=== PATIENT | male | born 1995 | race Caucasian/White ===

== ENCOUNTER 2016-06-12 08:18 | Outpatient (CLI) | payer OTHER | END 2016-06-12 23:59 | DX: Z00.00 Encounter for general adult medical examination without abnormal findings (principal) ==

== ENCOUNTER 2016-06-19 08:46 | Outpatient (CLI) | payer OTHER | END 2016-06-19 08:47 | disposition home or self-care (01) | DX: R79.89 Other specified abnormal findings of blood chemistry (principal); E11.9 Type 2 diabetes mellitus without complications; I10 Essential (primary) hypertension ==

== ENCOUNTER 2016-06-22 20:00 | Outpatient (CLI) | payer OTHER | END 2016-06-22 20:01 | disposition home or self-care (01) | DX: R16.1 Splenomegaly, not elsewhere classified (principal) ==

== ENCOUNTER 2016-07-10 08:11 | Outpatient (CLI) | payer OTHER ==
[2016-07-10 10:32] LABS: BILIRUBIN,TOTAL 0.9 mg/dL (0.2-1.0); TOTAL PROTEIN 6.5 g/dL (6.7-8.2)
[2016-07-10 10:34] LABS: BILIRUBIN,DIRECT < 0.1 mg/dL (0.1-0.5)
== END 2016-07-10 08:12 | disposition home or self-care (01) ==
LOC: LAB.R 08:11
PROVIDERS: ATTEND Physician Assistant Medical
DX: R79.89 Other specified abnormal findings of blood chemistry (principal)
CPT/HCPCS: 80076

== ENCOUNTER 2016-11-20 14:35 | Outpatient (CLI) | payer OTHER ==
[2016-11-20 13:02] LABS: ALBUMIN/GLOBULIN RATIO 1.6 (1.0-2.2); BILIRUBIN,TOTAL 0.7 mg/dL (0.2-1.0); CALCIUM 9.2 mg/dL (8.5-10.3); POTASSIUM 3.8 mmol/L (3.5-5.0); TOTAL PROTEIN 7.1 g/dL (6.7-8.2)
== END 2016-11-20 14:36 | disposition home or self-care (01) ==
LOC: LAB.R 14:35
PROVIDERS: ATTEND Physician Assistant Medical
DX: R79.89 Other specified abnormal findings of blood chemistry (principal)
CPT/HCPCS: 80053

== ENCOUNTER 2020-05-09 17:03 | Outpatient (CLI) | payer OTHER ==
[2020-05-09 21:07] LABS: THYROID STIMULATING HORMONE 1.58 uIU/mL (0.34-5.60)
== END 2020-05-09 17:04 | disposition home or self-care (01) ==
LOC: LAB.N 17:03
PROVIDERS: ATTEND Nurse Practitioner
DX: R22.1 Localized swelling, mass and lump, neck (principal)
CPT/HCPCS: 36415; 84443

== ENCOUNTER 2020-05-14 15:44 | Outpatient (CLI) | payer OTHER ==
--- NOTE | 2020-05-14 17:03 | Ultrasound Report ---
PROCEDURE: Head or Neck Soft Tissue INDICATIONS: LOCALIZED SWEELING, MASS, AND LUMP OF NECK which has resolved at time of today's imagin g TECHNIQUE: Real time scanning was performed of the neck region of interest, with image documentation . COMPARISON: None. FINDINGS: No soft tissue neck abnormality seen bilaterally. No lymphadenopathy. No abnormal fluid co llection. No abnormal skin thickening. IMPRESSION: Soft tissue neck without sonographic evidence for mass, fluid collection, or lymphadenopathy. Reviewed by: Pradeep Shea MD on 05/14/2020 5:02 PM PDT Approved by: Pradeep Shea MD on 05/14/2020 5:02 PM PDT Station ID: [id number]
== END 2020-05-14 15:45 | disposition home or self-care (01) ==
LOC: DI 15:44
PROVIDERS: ATTEND Family Medicine
DX: R22.1 Localized swelling, mass and lump, neck (principal)